=== PATIENT | female | born 1950 | race African-American/Black ===

== ENCOUNTER → 2018-04-06 | Outpatient (CLI) | payer MEDICARE, MEDICAID ==
[~2018-04-06] MED LIST: ALLO300T2 PO; ASPI-1159 PO; ATEN-42 PO; HYDR25TA PO; ISOS5TAB4 PO; LISI40TA4 PO; METF500T4 PO; P20 PO; PULM50 HHN; RANI150C12 PO; ZET10 PO
== END | disposition home or self-care (01) ==
LOC: MAMMO 09:54
PROVIDERS: ATTEND Specialist
DX: Z12.31 Encounter for screening mammogram for malignant neoplasm of breast (principal)
CPT/HCPCS: 77067

== ENCOUNTER → 2018-04-19 | Outpatient (CLI) | payer MEDICARE, MEDICAID ==
[~2018-04-19] MED LIST changes: -METF500T4 PO; +METF500T6 PO
== END | disposition home or self-care (01) ==
LOC: US 10:57
PROVIDERS: ATTEND Specialist
DX: R92.8 Other abnormal and inconclusive findings on diagnostic imaging of breast (principal)
CPT/HCPCS: 76642

== ENCOUNTER → 2019-08-11 | Day surgery (SDC) | payer MEDICARE, MEDICAID ==
[~2019-08-11] MED LIST changes: -ASPI-1159 PO; +ASPI-1393 PO; +EZET10TA13 PO; +LIDOCAINE HCL 1% 20ML VIAL (Pyxis) INJ ONE; +METF-414 PO; -METF500T6 PO; +SODIUM BICARBONATE 4% (2.4MEQ) 5ML VIAL IV ONE; -ZET10 PO
== END | disposition home or self-care (01) ==
LOC: RAD 09:26
PROVIDERS: ATTEND Surgery
DX: I89.8 Other specified noninfective disorders of lymphatic vessels and lymph nodes (principal); N64.52 Nipple discharge; C50.912 Malignant neoplasm of unspecified site of left female breast; J44.9 Chronic obstructive pulmonary disease, unspecified; Z79.82 Long term (current) use of aspirin; Z79.84 Long term (current) use of oral hypoglycemic drugs; Z79.899 Other long term (current) drug therapy; Z88.8 Allergy status to other drugs, medicaments and biological substances; Z80.3 Family history of malignant neoplasm of breast; Z82.49 Family history of ischemic heart disease and other diseases of the circulatory system
CPT/HCPCS: 19030; 38505; 76942; 77053; 88305; J3490; Q9967; 19083; L8514

== ENCOUNTER 2021-06-23 09:39 | Inpatient (IN) | payer MEDICARE, MEDICAID ==
[~2021-06-23] VITALS: Ht 162.6 cm; Wt 144.7 kg
[~2021-06-23 09:39] MED LIST changes: -ASPI-1393 PO; +ASPI-1497 PO; -LIDOCAINE HCL 1% 20ML VIAL (Pyxis) INJ ONE; +LISI40TA13 PO; -LISI40TA4 PO; -SODIUM BICARBONATE 4% (2.4MEQ) 5ML VIAL IV ONE
[2021-06-23 11:30] LABS: CHLORIDE 107 mEq/L (98-107)
[2021-06-23 11:34] LABS: PROTHROMBIN TIME 10.7 sec (9.6-11.0)
[2021-06-23 11:37] LABS: BASOPHILS % 0.5 % (0.0-2.0); EOSINOPHILS % 1.8 % (0.0-5.0); HEMATOCRIT. 30.7 % (36.0-48.0); HEMOGLOBIN. 9.6 g/dL (12.0-16.0); LYMPHOCYTES % 11.2 % (20.0-50.0); MEAN CORPUSCULAR HEMOGLOBIN 24.8 pg (28.0-32.0); MEAN CORPUSCULAR VOLUME 79.5 fL (81.0-99.0); MONOCYTES % 5.8 % (2.0-8.0); NEUTROPHILS % 80.7 % (40.0-76.0); PLATELET 247 x1000/uL (130-400); RED BLOOD CELL COUNT 3.86 mill/uL (4.2-5.4); RED CELL DISTRIBUTION WIDTH 18.2 % (11.6-14.6)
[2021-06-23] MEDS ORDERED: ONDANSETRON HCL 4MG/2ML INJ IV PRN (13:30)
[2021-06-23] MEDS ORDERED: TRAMADOL 50MG TABLET PO PRN (13:30)
[2021-06-23] MEDS ORDERED: DOCUSATE SODIUM 100MG CAPSULE PO PRN (13:30)
[2021-06-23] MEDS ORDERED: ACETAMINOPHEN 325MG TABLET PO PRN ×2 (13:30)
[2021-06-23] MEDS ORDERED: NITROGLYCERIN 0.4MG TABLET SL SL PRN (13:30)
[2021-06-23] MEDS ORDERED: CLONIDINE 0.1MG TABLET PO PRN (13:30)
[2021-06-23] MEDS ORDERED: MAGNESIUM/ALUMINUM HYDROXIDE/SIMETHICONE 30ML UDC PO PRN (13:30)
[2021-06-23] MEDS ORDERED: GUAIFENESIN 200MG/10ML SUGAR FREE UDC PO PRN (13:30)
[2021-06-23] MEDS ORDERED: IPRATROPIUM/ALBUTEROL 0.5-3(2.5)MG/3ML NEB NEB PRN (13:30)
[2021-06-23] MEDS ORDERED: ZOLPIDEM TARTRATE 5MG TABLET PO PRN (13:30)
[2021-06-23] MEDS ORDERED: SODIUM POLYSTYRENE SULFONATE 15 G/60 ML BOT PO NR (13:45)
[2021-06-23 14:22] LABS: FERRITIN 16 ng/mL (10-291)
[2021-06-23 14:30] VITALS: BP 146/72
[2021-06-23 14:34] LABS: VITAMIN B12 SERUM 626 pg/mL (211-911)
[2021-06-23 14:45] LABS: FOLIC ACID (FOLATE) SERUM > 20.00 ng/mL (>5.38)
[2021-06-23] MEDS ORDERED: CRES10 PO (15:42)
[2021-06-23 16:00] VITALS: BP 146/72
[2021-06-23 18:51] LABS: TOTAL IRON BINDING CAPACITY 321 ug/dL (250-450)
[2021-06-23 18:53] LABS: CREATINE KINASE 56 IU/L (26-192)
[2021-06-23 18:54] LABS: CREATINE KINASE MB FRACTION < 1.0 ng/mL (0.5-3.6)
[2021-06-23 20:00] VITALS: BP 120/57
[2021-06-23] MEDS ORDERED: NALOXONE HCL 0.4MG/ML VIAL IV PRN (21:00)
[2021-06-23 23:51] LABS: CREATINE KINASE 77 IU/L (26-192)
[2021-06-23 23:52] LABS: CREATINE KINASE MB FRACTION < 1.0 ng/mL (0.5-3.6)
[2021-06-24 00:36] VITALS: BP 151/62
[2021-06-24 04:00] VITALS: BP 130/56
[2021-06-24 04:20] LABS: BASOPHILS % 0.5 % (0.0-2.0); EOSINOPHILS % 1.1 % (0.0-5.0); HEMATOCRIT. 27.9 % (36.0-48.0); HEMOGLOBIN. 8.6 g/dL (12.0-16.0); LYMPHOCYTES % 8.2 % (20.0-50.0); MEAN CORPUSCULAR HEMOGLOBIN 25.1 pg (28.0-32.0); MEAN PLATELET VOLUME 8.9 fl (7.4-10.4); MONOCYTES % 3.7 % (2.0-8.0); NEUTROPHILS % 86.5 % (40.0-76.0); PLATELET 265 x1000/uL (130-400); RED BLOOD CELL COUNT 3.44 mill/uL (4.2-5.4); RED CELL DISTRIBUTION WIDTH 18.7 % (11.6-14.6)
[2021-06-24 04:34] LABS: CHLORIDE 109 mEq/L (98-107)
[2021-06-24 04:40] LABS: PHOSPHORUS 3.8 mg/dL (2.5-4.9)
[2021-06-24 08:00] VITALS: BP 150/68
[2021-06-24] MEDS: PANTOPRAZOLE SODIUM 40 MG/VIAL IV SCH (09:06)
[2021-06-24] MEDS: DOCUSATE SODIUM 100MG CAPSULE PO SCH ×2 (09:06→18:03)
[2021-06-24 12:00] VITALS: BP 122/65
[2021-06-24 16:00] VITALS: BP 161/51
[2021-06-24 20:00] VITALS: BP 168/80
[2021-06-25] VITALS: BP 132/41
[2021-06-25 04:00] VITALS: BP 136/43
[2021-06-25 08:05] VITALS: BP 104/51
[2021-06-25] MEDS: DOCUSATE SODIUM 100MG CAPSULE PO SCH (08:48)
[2021-06-25] MEDS: PANTOPRAZOLE SODIUM 40 MG/VIAL IV SCH (08:48)
[2021-06-25 12:10] VITALS: BP 129/53
[2021-06-25 14:46] VITALS: BP 118/55
[2021-06-25 15:52] LABS: HEMATOCRIT 25.4 % (36.0-48.0); HEMOGLOBIN 7.9 g/dL (12.0-16.0)
[2021-06-25 16:00] VITALS: BP 118/54
== END 2021-06-25 17:21 | disposition home or self-care (01) | DRG 393 ==
LOC: ER 09:39 → 6WST 12:44 → EDBEDREQTM 12:45 → EDBEDREQ 12:45 → ENRESERV 12:51 → SUPCPDRO 13:24
PROVIDERS: ADMIT Internal Medicine; ATTEND Internal Medicine
DX: K64.9 Unspecified hemorrhoids (principal); J96.20 Acute and chronic respiratory failure, unspecified whether with hypoxia or hypercapnia; E43 Unspecified severe protein-calorie malnutrition; D62 Acute posthemorrhagic anemia; Z68.43 Body mass index [BMI] 50.0-59.9, adult; E11.9 Type 2 diabetes mellitus without complications; I10 Essential (primary) hypertension; J44.9 Chronic obstructive pulmonary disease, unspecified; K43.9 Ventral hernia without obstruction or gangrene; E66.9 Obesity, unspecified; E87.5 Hyperkalemia; Z88.8 Allergy status to other drugs, medicaments and biological substances; Z79.899 Other long term (current) drug therapy; Z79.84 Long term (current) use of oral hypoglycemic drugs; Z79.82 Long term (current) use of aspirin; Z99.81 Dependence on supplemental oxygen; Z71.3 Dietary counseling and surveillance
CPT/HCPCS: 36415; 80053; 82550; 82553; 82607; 82728; 82746; 83540; 83550; 83735; 84100; 84132; 84484; 85014; 85018; 85025; 86850; 86900; 93970; 99285; C9113